=== PATIENT | male | born 1990 | race Caucasian/White ===

== ENCOUNTER 2021-02-09 06:56 | Emergency (ER) | payer SELFPAY ==
[~2021-02-09] VITALS: Ht 177.8 cm; Wt 83.9 kg
== END 2021-02-09 08:03 | disposition left against medical advice (07) ==
LOC: ED 06:56
DX: R68.83 Chills (without fever) (principal); Z53.21 Procedure and treatment not carried out due to patient leaving prior to being seen by health care provider